=== PATIENT | female | born 1995 | race African-American/Black ===

== ENCOUNTER 2019-03-18 07:33 | Emergency (ER) | payer OTHER ==
[~2019-03-18] VITALS: Ht 170.2 cm; Wt 88.7 kg
[2019-03-18] MEDS ORDERED: HYDR-643 PO (07:41)
[2019-03-18] MEDS ORDERED: TAZO0.052 TOP (07:41)
[2019-03-18] MEDS ORDERED: TRAZ-252 PO (07:41)
[2019-03-18] MEDS ORDERED: IBUP200T45 PO (07:42)
[2019-03-18] MEDS ORDERED: NS 1,000 ML IV ONE (08:00)
[2019-03-18] MEDS ORDERED: KETOROLAC 30 MG/ML VIAL (J1885) IV ONE (08:00)
[2019-03-18 08:19] LABS: BASO # 0.1 10^3/uL (0.0-0.2); BASO % 0.6 % (0.0-1.0); EOS # 0.2 10^3/uL (0.0-0.5); EOS % 1.5 % (0.0-3.0); HEMATOCRIT 38.7 % (36.0-47.0); LYMPH # 2.1 10^3/uL (1.5-5.0); LYMPH % 21.4 % (24.0-44.0); MEAN CORPUSCULAR HEMOGLOBIN 33.7 pg (27.0-33.0); MEAN CORPUSCULAR HGB CONC 33.6 g/dl (32.0-36.5); MEAN CORPUSCULAR VOLUME 100.3 fl (80.0-96.0); MONO # 0.9 10^3/uL (0.0-0.8); NEUTROPHILS # 6.5 10^3/uL (1.5-8.5); NEUTROPHILS % 67.1 % (36.0-66.0); PLATELET COUNT, AUTOMATED 282 10^3/uL (150-450); RED BLOOD COUNT 3.86 10^6/uL (4.00-5.40); WHITE BLOOD COUNT 9.7 10^3/uL (4.0-10.0)
[2019-03-18 09:05] LABS: ALBUMIN 3.6 GM/DL (3.2-5.2); ALT/SGPT 16 U/L (12-78); BILIRUBIN,DIRECT < 0.1 MG/DL (0.0-0.2); BILIRUBIN,TOTAL 0.4 MG/DL (0.2-1.0); BLOOD UREA NITROGEN 10 MG/DL (7-18); CALCIUM LEVEL 8.6 MG/DL (8.5-10.1); CARBON DIOXIDE LEVEL 23 MEQ/L (21-32); CHLORIDE LEVEL 111 MEQ/L (98-107); CREATININE FOR GFR 0.69 MG/DL (0.55-1.30); GLOMERULAR FILTRATION RATE > 60.0 (>60); GLUCOSE, FASTING 89 MG/DL (70-100); POTASSIUM SERUM 4.7 MEQ/L (3.5-5.1); SODIUM LEVEL 140 MEQ/L (136-145)
--- NOTE | 2019-03-18 09:47 | REP ---
PELVIC ULTRASOUND: Real-time sonographic evaluation of the pelvis performed utilizing transabdominal and endovaginal technique. Bladder measures 4.3 x 1.5 x 6.9 cm. Uterus measures 7.6 x 3.8 x 4.7 cm. Endometrial thickness is 7 mm. There is no endometrial fluid collection. Subcentimeter nabothian cyst is seen in the region of the cervix. Right ovary measures 4.0 x 2.5 x 2.9 cm and left ovary 3.6 x 2.5 x 3.0 cm. Small subcentimeter follicles are seen in each ovary. No adnexal mass is seen. There is mild free fluid predominantly on the right. No torsion is seen, RI right ovary 0.58 and left ovary 0.56 with duplex Doppler evaluation. IMPRESSION: No mass or torsion. Mild free fluid predominantly on the right. Electronically Signed by Buddy Meadows MD 03/18/2019 10:30 A
[2019-03-18] MEDS ORDERED: KETO10TAB PO (09:48)
[2019-03-18 09:57] VITALS: BP 118/56
== END 2019-03-18 10:06 | disposition home or self-care (01) ==
LOC: M ED 07:33
DX: R10.9 Unspecified abdominal pain (principal); N94.6 Dysmenorrhea, unspecified
CPT/HCPCS: 36415; 76830; 76856; 80048; 80076; 85025; 93976; 96361; 96374; 99284; J1885

== ENCOUNTER 2019-04-04 08:56 | Emergency (ER) | payer OTHER ==
[~2019-04-04] VITALS: Ht 172.7 cm; Wt 77.3 kg
[~2019-04-04 08:56] MED LIST: HYDR-643 PO; IBUP200T45 PO; KETO10TAB PO; TAZO0.052 TOP; TRAZ-252 PO
[2019-04-04] MEDS ORDERED: ACETAMINOPHEN 500 MG TAB PO ONE (10:00)
--- NOTE | 2019-04-04 10:25 | REP ---
CT brain: 04/04/2019. Indication: Head trauma. Comparison: None. Technique: Unenhanced axial CT images of the brain were obtained from skull base to vertex. Findings: There is no acute intracranial hemorrhage, acute cortical infarction, hydrocephalus or acute calvarial fracture. Impression: No acute intracranial process. Electronically Signed by Yang Hernandez DO 04/04/2019 10:17 A
[2019-04-04 11:17] VITALS: BP 108/75
== END 2019-04-04 11:21 | disposition home or self-care (01) ==
LOC: M ED 08:56 → EDBD 08:56 → M ED 11:21
DX: S06.0X0A Concussion without loss of consciousness, initial encounter (principal); W22.8XXA Striking against or struck by other objects, initial encounter; Y92.89 Other specified places as the place of occurrence of the external cause; Y99.0 Civilian activity done for income or pay

== ENCOUNTER 2019-05-14 10:44 | Inpatient (IN) | payer OTHER ==
[~2019-05-14] VITALS: Ht 172.7 cm; Wt 83.2 kg
[2019-05-14 11:30] LABS: HEMATOCRIT 42.1 % (36.0-47.0); HEMOGLOBIN 13.7 g/dl (12.0-15.5); MEAN CORPUSCULAR HEMOGLOBIN 32.7 pg (27.0-33.0); MEAN CORPUSCULAR HGB CONC 32.5 g/dl (32.0-36.5); MEAN CORPUSCULAR VOLUME 100.5 fl (80.0-96.0); PLATELET COUNT, AUTOMATED 300 10^3/uL (150-450); RED BLOOD COUNT 4.19 10^6/uL (4.00-5.40); WHITE BLOOD COUNT 8.3 10^3/uL (4.0-10.0)
[2019-05-14 11:55] LABS: HCG, SERUM QUALITATIVE NEGATIVE (NEGATIVE)
[2019-05-14 12:08] LABS: ACETAMINOPHEN LEVEL < 2.0 UG/ML (10.0-30.0); ALBUMIN 3.9 GM/DL (3.2-5.2); ALT/SGPT 25 U/L (12-78); BILIRUBIN,DIRECT 0.2 MG/DL (0.0-0.2); BILIRUBIN,TOTAL 0.7 MG/DL (0.2-1.0); BLOOD UREA NITROGEN 11 MG/DL (7-18); CARBON DIOXIDE LEVEL 25 MEQ/L (21-32); CHLORIDE LEVEL 105 MEQ/L (98-107); ETHYL ALCOHOL (ETHANOL) < 0.003 % (0.000-0.010); GLOMERULAR FILTRATION RATE > 60.0 (>60); GLUCOSE, FASTING 83 MG/DL (70-100); POTASSIUM SERUM 4.4 MEQ/L (3.5-5.1); SALICYLATE LEVEL < 1.7 MG/DL (5.0-30.0); SODIUM LEVEL 137 MEQ/L (136-145); TOTAL PROTEIN 7.2 GM/DL (6.4-8.2)
[2019-05-14 12:12] LABS: AMPHETAMINES LEVEL URINE NEGATIVE (NEGATIVE); BARBITURATES URINE NEGATIVE (NEGATIVE); BENZODIAZEPINES URINE NEGATIVE (NEGATIVE); CANNABINOIDS URINE POSITIVE (NEGATIVE); COCAINE METABOLITE URINE NEGATIVE (NEGATIVE); METHADONE URINE NEGATIVE (NEGATIVE); OPIATES URINE NEGATIVE (NEGATIVE); PHENCYCLIDINE URINE NEGATIVE (NEGATIVE)
[2019-05-14] MEDS ORDERED: HYDR-3363 PO (14:02)
[2019-05-14] MEDS ORDERED: MAALOX 30 ML SUSP *UDC PO PRN (14:15)
[2019-05-14] MEDS ORDERED: hydrOXYzine 25 MG TAB PO PRN (14:15)
[2019-05-14] MEDS ORDERED: ACETAMINOPHEN TAB 650MG DOSE (2X325MG) PO PRN (14:15)
[2019-05-15 06:12] VITALS: BP 130/59
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
[2019-05-15] MEDS ORDERED: INFLUENZA QUADRIVALENT PF VACCINE 0.5ML SYRINGE (90686) IM ONE (09:00)
--- NOTE | 2019-05-15 14:19 | HPEPDOC ---
General Date of Admission May 14, 2019 at 14:02 Date of Service: May 15, 2019 Attending Physician: OPAL GOMES MD Chief Complaint The patient is a 23-year-old female admitted with a reason for visit of Ptsd,Chronic. Source: Patient Exam Limitations: No limitations Associated Symptoms: Denies Symptoms History of Present Illness Patient was admitted to inpatient mental health to assess deterioration of her chronic PTSD and current suicide ideation. Patient is being assessed medically by the hospitalist group. Patient has denied any medical issues at this time. She reported that she feels well. Nursing staff denied any medical concerns regarding this patient at this time. Home Medications Scheduled PRN Hydroxyzine HCl (Hydroxyzine HCl) 25 Mg Tablet, 25 MG PO BID PRN for ANXIETY, (Reported) Allergies Coded Allergies: No Known Allergies (Unverified , 03/18/19) Social History Psychosocial History: Alex SI and HI A-FIB/CHADSVASC A-FIB History Current/History of A-Fib/PAF?: No Review of Systems Constitutional: Denies: Chills, Fever Eyes: Denies: Pain, Vision change ENT: Denies: Head Aches, Ear Pain, Dysphagia Skin: Denies: Rash, Lesions Pulmonary: Denies: Dyspnea, Cough Cardiovascular: Denies: Chest Pain, Palpitations Gastrointestinal: Denies: Nausea, Vomiting, Abdominal Pain, Diarrhea Genitourinary: Denies: Dysuria, Frequency, Incontinence, Retention Hematologic: Denies: Bruising Musculoskeletal: Denies: Neck Pain, Back Pain, Joint Pain, Muscle Pain, Spasms Neurological: Denies: Weakness, Numbness Psych: Reports: Mood Normal; Denies: Thoughts of Self Harm, Thoughts of Harming Other Physical Examination General Exam: Positive: Alert, Cooperative, No Acute Distress Eye Exam: Positive: Conjunctiva & lids normal ENT Exam: Positive: Atraumatic, Mucous membr. moist/pink, Pharynx Normal Neck Exam: Positive: Supple, thyromegaly Chest Exam: Positive: Clear to auscultation, Normal air movement Heart Exam: Positive: Rate Normal, Normal S1, Normal S2 Abdomen Exam: Positive: Normal bowel sounds, Soft Extremity Exam: Positive: Edema Skin Exam: Positive: Nl turgor and temperature Neuro Exam: Positive: Normal Gait, Normal Speech Psych Exam: Positive: Anxiety Vital Signs Vital Signs Date Time Temp Pulse Resp B/P (MAP) Pulse Ox O2 Delivery O2 Flow Rate FiO2 05/15/19 06:12 98.4 65 16 130/59 (82) 05/14/19 14:41 100 Room Air Plan / VTE VTE Prophylaxis Ordered?: No Plan Plan Patient to be managed per psychiatry. Hospitalist group will follow-up as needed during current admission. Diet: Continue Current Activity: Continue Current SILVIA VILLALPANDO PA-C May 15, 2019 14:19
[2019-05-15] MEDS: DOCUSATE SODIUM 100 MG CAP PO PRN ×2 (14:35→19:30)
--- NOTE | 2019-05-15 16:33 | IPNPDOC ---
Text Note Date of Service The patient was seen on 05/15/19. NOTE Medicine will sign off at this time. VS,Fishbone, I+O VS, Fishbone, I+O Vital Signs Date Time Temp Pulse Resp B/P (MAP) Pulse Ox O2 Delivery O2 Flow Rate FiO2 05/15/19 06:12 98.4 65 16 130/59 (82) 05/14/19 14:41 100 Room Air SILVIA VILLALPANDO PA-C May 15, 2019 16:33
[2019-05-15 18:00] VITALS: BP 113/53
[2019-05-16 06:02] VITALS: BP 134/66
[2019-05-16] MEDS ORDERED: VENLAFAXINE **XR** 37.5 MG CAPSULE PO SCH (09:00)
[2019-05-16] MEDS ORDERED: VENL37.598 PO (11:30)
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
== END 2019-05-16 12:04 | disposition home or self-care (01) | DRG 882 ==
LOC: M ED 10:44 → M ED INP 14:02 → M PSY 14:53
PROVIDERS: ADMIT Psychiatry & Neurology Addiction Medicine; ATTEND Psychiatry & Neurology Addiction Medicine
DX: F43.10 Post-traumatic stress disorder, unspecified (principal); Z91.410 Personal history of adult physical and sexual abuse; Z81.8 Family history of other mental and behavioral disorders; Z81.1 Family history of alcohol abuse and dependence; F17.290 Nicotine dependence, other tobacco product, uncomplicated; F12.10 Cannabis abuse, uncomplicated; Z79.899 Other long term (current) drug therapy